=== PATIENT | female | born 1955 | race Two or more races ===

== ENCOUNTER → 2024-11-03 | Outpatient (CLI) | payer MEDICARE | LOC: LAB SHORT 15:39 → LAB 15:39 | DX: R30.0 Dysuria (principal) | CPT/HCPCS: 87077; 87086; 87186 ==

== ENCOUNTER → 2024-12-22 | Outpatient (CLI) | payer MEDICARE, OTHER ==
[2024-12-22 16:23] LABS: BASOPHILS ABSOLUTE AUTO 0.05 K/mm3 (0.00-0.23); BASOPHILS PERCENT AUTO 1 % (0-2); EOSINOPHILS ABSOLUTE AUTO 0.11 K/mm3 (0.00-0.68); EOSINOPHILS PERCENT AUTO 2 % (0-6); Hematocrit 51.0 % (33.0-51.0); Hemoglobin 17.2 g/dL (11.5-16.0); IMMATURE GRAN ABSOLUTE AUTO 0.01 K/mm3 (0.00-0.10); IMMATURE GRAN PERCENT AUTO 0 % (0-1); LYMPHOCYTES ABSOLUTE AUTO 1.36 K/mm3 (0.84-5.20); LYMPHOCYTES PERCENT AUTO 28 % (21-46); MONOCYTES ABSOLUTE AUTO 0.41 K/mm3 (0.16-1.47); MONOCYTES PERCENT AUTO 8 % (4-13); Mean Corpuscular HGB Conc 33.7 g/dL (31.5-36.5); Mean Corpuscular Volume 101 fL (80-100); NEUTROPHILS ABSOLUTE AUTO 2.98 K/mm3 (1.96-9.15); NEUTROPHILS PERCENT AUTO 61 % (41-73); NRBC ABSOLUTE 0.00 K/mm3 (0.00-0.02); NRBC Auto 0.0 /100 WBC (0.0-0.2); Platelet Count 262 K/mm3 (150-400); RDW Coefficient Variation 13.8 % (11.7-14.2); RDW Standard Deviation 51.9 fL (35.1-46.3)
[2024-12-22 16:39] LABS: C-REACTIVE PROTEIN, EXT RANGE <0.290 mg/dL (0.000-0.300)
[2024-12-22 16:49] LABS: Alanine Aminotransfer (ALT/SGP 17 U/L (12-78); Albumin, Blood 3.8 g/dL (3.4-5.0); Albumin/Globulin Ratio 1.1 (0.8-1.8); Anion Gap 8 mmol/L (3-11); Aspartate Aminotrans (AST/SGOT 17 U/L (12-37); Bilirubin, Total 0.4 mg/dL (0.1-1.0); Blood Urea Nitrogen 25 mg/dL (8-24); CO2, Blood 28 mmol/L (21-32); Calcium, Blood 8.7 mg/dL (8.5-10.1); Chloride, Blood 105 mmol/L (98-108); Creatinine, Blood 0.66 mg/dL (0.40-1.00); Globulin, Blood 3.5 g/dL (2.2-4.0); Glucose, Blood 97 mg/dL (70-99); Potassium, Blood 3.8 mmol/L (3.5-5.5); Sodium, Blood 137 mmol/L (136-145); Thyroid Stimulating Hormone 2.860 uIU/mL (0.360-4.800); Total Protein, Blood 7.3 g/dL (6.4-8.2)
[2024-12-24 13:22] LABS: HEPATITIS C AB CIA INTERP Negative (Negative); HEPATITIS C ANTIBODY CIA INDEX 0.04 IV
[2024-12-24 15:29] LABS: HIV 1,2 COMBO ANTIGEN/ANTIBODY Negative (Negative)
== END | disposition home or self-care (01) ==
LOC: LAB 14:58 → LAB SHORT 14:58
PROVIDERS: Student in an Organized Health Care Education/Training Program
DX: Z11.4 Encounter for screening for human immunodeficiency virus [HIV] (principal); Z11.59 Encounter for screening for other viral diseases; M62.50 Muscle wasting and atrophy, not elsewhere classified, unspecified site; F17.209 Nicotine dependence, unspecified, with unspecified nicotine-induced disorders; R11.0 Nausea; R63.4 Abnormal weight loss; R64 Cachexia
CPT/HCPCS: 80053; 84443; 85025; 85651; 86140; 86803; 87389

== ENCOUNTER 2025-02-04 06:01 | Day surgery (SDC) | payer MEDICARE, OTHER ==
[2025-02-04] VITALS (14 sets, daily range): BP systolic 76–141; BP diastolic 44–75
[2025-02-04] MEDS ORDERED: LOSA25 PO (06:27)
[2025-02-04] MEDS ORDERED: ASPI81CH PO (06:27)
[2025-02-04] MEDS ORDERED: METO25ER PO (06:28)
[2025-02-04] MEDS ORDERED: NS 1,000 ML IV ONE (06:42)
[2025-02-04] MEDS ORDERED: Benzocaine Oral Spray 0.5ML UD ONE (06:56)
--- NOTE | 2025-02-04 07:35 | NUR ---
ASSUMED CARE FROM ANESTHESIA. PT RESTING AT THIS TIME. RESPONDS TO VERBAL STIMULI.
--- NOTE | 2025-02-04 07:41 | NUR ---
PHENYLEPHRINE 100MCG IVP AND NS BOLUS GIVEN FOR BP 75 SYSTOLIC. MD NOTIFIED. BP 101 SYSTOLIC POST MEDS AND BOLUS.
--- NOTE | 2025-02-04 07:59 | NUR ---
PT AWAKE AND VERBALIZING WELL.
--- NOTE | 2025-02-04 08:06 | NUR ---
PT AND VERBALIZED UNDERSTANDING OF WRITTEN AND VERBAL D/C INST. VSS. PT AMB IN RM /S DIFFICULTY. TAKING PO FLUIDS WELL. IV REMOVED.
--- NOTE | 2025-02-04 08:39 | NUR ---
PT TAKEN OUT OF THE DEPARTMENT VIA W/C.
[2025-02-04] MEDS ORDERED: Midazolam HCl 1MG / ML 2ML Vial IV ONE (19:00)
[2025-02-04] MEDS ORDERED: Propofol 10mg/ml 20 ml Vial (Procedural) IV ONE (19:00)
[2025-02-04] MEDS ORDERED: Lidocaine HCl 2% 20 MG/ML 5ML SYR IV ONE (19:00)
[2025-02-04] MEDS ORDERED: Phenylephrine HCl 100 MCG/ML-NS 10MLSYR (1MG/10ML) IV ONE (19:00)
== END 2025-02-04 23:50 | disposition home or self-care (01) ==
LOC: ORSCMMR 06:01 → MHTC 06:01 → ORSCMMR 06:02 → ORD 07:00 → ORSCMMR 23:50 → MHTC 23:50
DX: R13.10 Dysphagia, unspecified (principal)
CPT/HCPCS: 93312; 93325; A9270; J2003; J2250; J2371; J2704; J7030